=== PATIENT | female | born 1995 | race African-American/Black ===

== ENCOUNTER 2016-12-27 13:20 | Emergency (ER) | payer SELFPAY ==
[~2016-12-27] VITALS: Ht 157.5 cm; Wt 54.4 kg
[2016-12-27 13:25] VITALS: BP 124/72
--- NOTE | 2016-12-27 14:43 | PHYS DOC ---
Past Medical History Past Medical History: STD Additional Past Medical Histor: chlamydia Past Surgical History: No Surgical History Alcohol Use: None Drug Use: None Adult General Chief Complaint Chief Complaint: VAGINAL PROBLEM HPI HPI Patient is a 21 year old female presents to emergency department stating that she's been having some vaginal discharge with burning. She states that she is 13 weeks and had seen her tele marketing executive who had her try Monistat over-the- counter. She states she tried to 3 day regimen with no relief. Patient states she still having some burning and itching in the vaginal area. She states the discharge is more of the Monistat type of secretions. She denies any abdominal pain or discomfort. She is 1 para 0 AB 0 Review of Systems Review of Systems Constitutional: Denies fever or chills [] Eyes: Denies change in visual acuity, redness, or eye pain [] HENT: Denies nasal congestion or sore throat [] Respiratory: Denies cough or shortness of breath [] Cardiovascular: No additional information not addressed in HPI [] GI: Denies abdominal pain, nausea, vomiting, bloody stools or diarrhea [] : Denies dysuria or hematuria [] Musculoskeletal: Denies back pain or joint pain [] Integument: Denies rash or skin lesions. Complaint of irritation and discomfort in the vaginal area. Neurologic: Denies headache, focal weakness or sensory changes [] Endocrine: Denies polyuria or polydipsia [] Allergies Allergies Allergies Coded Allergies Type Severity Reaction Last Updated Verified No Known Drug Allergies 02/22/15 No Physical Exam Physical Exam Constitutional: Well developed, well nourished, no acute distress, non-toxic appearance. [] HENT: Normocephalic, atraumatic, bilateral external ears normal, oropharynx moist, no oral exudates, nose normal. [] Eyes: PERRLA, EOMI, conjunctiva normal, no discharge. [] Neck: Normal range of motion, no tenderness, supple, no stridor. [] Cardiovascular:Heart rate regular rhythm, no murmur [] Lungs & Thorax: Bilateral breath sounds clear to auscultation [] Skin: Warm, dry, no erythema, no rash. [] Back: No tenderness Extremities: No tenderness, no cyanosis, no clubbing, ROM intact, no edema. [] Neurologic: Alert and oriented X 3, normal motor function, normal sensory function, no focal deficits noted. [] Psychologic: Affect normal, judgement normal, mood normal. [] Speculum exam with patient noted to be red around the perineal area, she did have some yellow discharge noted in the vaginal vault. Manual exam no adnexal tenderness no CMT noted. Current Patient Data Lab Values Laboratory Tests Test 12/27/16 15:08 Urine Collection Type Unknown Urine Color Yellow Urine Clarity Cloudy Urine pH 6.5 Urine Specific [place] 1.025 Urine Protein Negative mg/dL (NEG-TRACE) Urine Glucose (UA) Negative mg/dL (NEG) Urine Ketones (Stick) Negative mg/dL (NEG) Urine Blood Small (NEG) Urine Nitrite Negative (NEG) Urine Bilirubin Negative (NEG) Urine Urobilinogen Dipstick 1.0 mg/dL (0.2 mg/dL) Urine Leukocyte Esterase Large (NEG) Urine RBC 1-2 /HPF (0-2) Urine WBC >40 /HPF (0-4) Urine Squamous Epithelial Cells Mod /LPF Urine Bacteria Few /HPF (0-FEW) Urine Mucus Mod /LPF Urine Yeast Present /HPF Microbiology 12/27/16 Wet Prep - Final, Complete EKG EKG [] Radiology/Procedures Radiology/Procedures [] Course & Med Decision Making Course & Med Decision Making Pertinent Labs and Imaging studies reviewed. (See chart for details) Patients urine is positive for UTI. Patient is positive for yeast. Patient will be placed on macrobid with clotrimiazole. Patient will be encouraged to drink plenty of fluids such as water and cranberry juice. Avoid cranberry juice cocktail, carbonated beverages, citrus fruits, caffeine and alcohol as these are considered irritants to the bladder. Patient was provided with signs and symptoms to return to the emergency department. Patient agrees with discharge instructions, treatment regimen and followup recommendations. [] Dragon Disclaimer Dragon Disclaimer This electronic medical record was generated, in whole or in part, using a voice recognition dictation system. Departure Departure Impression: Primary Impression: UTI (urinary tract infection) Additional Impression: Yeast vaginitis Disposition: HOME, SELF-CARE Condition: STABLE Referrals: NO PCP (PCP) Patient Instructions: Candidal Vulvovaginitis, [id number], Urinary Tract Infection, [id number] Additional Instructions: Activity as tolerated Medication as prescribed Drink plenty of fluids such as water and cranberry juice Avoid cranberry juice cocktail, carbonated beverages, citrus fruits, caffeine and alcohol. Followup with [facility] for further evaluation Return to emergency department for signs and symptoms that become worse. Scripts Clotrimazole ([id number]) 45 Gm Cream.appl 45 GM VG HS for 7 Days, #7 EACH Prov: ADRI BECKER APRN 12/27/16 Nitrofurantoin Monohyd/M-Cryst (MACROBID 100 MG CAPSULE) 100 Mg Capsule 1 CAP PO BID, #14 CAP Prov: ADRI BECKER APRN 12/27/16 Problem Qualifiers ADRI BECKER APRN Dec 27, 2016 14:42
[2016-12-27 15:22] LABS: BILIRUBIN,URINE NEGATIVE (NEG); GLUCOSE,URINE NEGATIVE (NEG); NITRITE,URINE NEGATIVE (NEG); PH,URINE 6.5; PROTEIN,URINE NEGATIVE (NEG-TRACE)
[2016-12-27 15:28] LABS: BACTERIA,URINE FEW /HPF (0-FEW); SQUAMOUS EPITHELIAL CELL,UR MOD /LPF; WBC,URINE >40 /HPF (0-4); YEAST,URINE PRESENT /HPF
[2016-12-27] MEDS ORDERED: NITR100C62 PO (15:39)
[2016-12-27] MEDS ORDERED: CLOT45CR9 VG (15:39)
== END 2016-12-27 15:45 | disposition home or self-care (01) ==
LOC: ER 13:20
DX: O23.41 Unspecified infection of urinary tract in pregnancy, first trimester (principal); O98.811 Other maternal infectious and parasitic diseases complicating pregnancy, first trimester; B37.3 Candidiasis of vulva and vagina; Z3A.13 13 weeks gestation of pregnancy
CPT/HCPCS: 81001; 87086; 87491; 87591; 99284; Q0111

== ENCOUNTER 2018-03-10 09:47 | Emergency (ER) | payer SELFPAY ==
[~2018-03-10] VITALS: Ht 160 cm; Wt 76.7 kg
[~2018-03-10 09:47] MED LIST: CLOT45CR9 VG; NITR100C62 PO
[2018-03-10 09:49] VITALS: BP 139/85
[2018-03-10 10:14] LABS: BILIRUBIN,URINE NEGATIVE (NEG); CLARITY,URINE CLEAR; COLOR,URINE YELLOW; NITRITE,URINE NEGATIVE (NEG); PROTEIN,URINE NEGATIVE (NEG-TRACE); UROBILINOGEN,URINE 0.2 mg/dL (0.2 mg/dL)
[2018-03-10 10:38] LABS: BACTERIA,URINE FEW /HPF (0-FEW)
--- NOTE | 2018-03-10 11:40 | PHYS DOC ---
Past Medical History Past Medical History: No Pertinent History Additional Past Medical Histor: chlamydia Past Surgical History: No Surgical History Alcohol Use: None Drug Use: None Adult General Chief Complaint Chief Complaint: VAGINAL BLEEDING HPI HPI Patient is a 22 year old female who presents with vaginal bleeding and discharge. Patient states she had some intermittent vaginal bleeding over the last 3 weeks which was not normal. She is uncertain when her last menstrual period was because of the irregularity of her bleeding. The patient is not on control. She was last sexually active 2 weeks ago. She also describes some abnormal vaginal discharge over the same time. She has not had a fever or chills. No pelvic pain or cramps. No nausea or vomiting. No heavy bleeding. Review of Systems Review of Systems Constitutional: Denies fever or chills Eyes: Denies change in visual acuity HENT: Denies nasal congestion Respiratory: Denies cough or shortness of breath Cardiovascular: No additional information GI: Denies abdominal pain, nausea : Denies dysuria or hematuria Musculoskeletal: Denies back pain Integument: Denies rash or skin lesions Neurologic: Denies headache Endocrine: Denies polyuria All other systems were reviewed and found to be within normal limits, except as documented in this note. Current Medications Current Medications Current Medications Medications (Trade) Dose Ordered Sig/Bjorn Start Time Stop Time Status Last Admin Dose Admin Azithromycin (Zithromax) 500 mg 1X ONCE 03/10/18 11:45 03/10/18 11:46 Ceftriaxone Sodium (Rocephin Im) 250 mg 1X ONCE 03/10/18 11:45 03/10/18 11:46 Allergies Allergies Allergies Coded Allergies Type Severity Reaction Last Updated Verified No Known Drug Allergies 02/22/15 No Physical Exam Physical Exam Constitutional: Well developed, well nourished, no acute distress, non-toxic appearance. HENT: Normocephalic, atraumatic, bilateral external ears normal, oropharynx moist Neck: Normal range of motion Cardiovascular:Heart rate regular rhythm, no murmur Lungs & Thorax: Bilateral breath sounds clear to auscultation Abdomen: Bowel sounds normal, soft, no tenderness Skin: Warm, dry, no erythema, no rash. Back: No tenderness, no CVA tenderness. Neurologic: Alert and oriented X 3 Psychologic: Affect normal Pelvic: Normal female external genitalia. Vaginal mucosa is moist and noninflamed. The cervical os is visualized to be closed with some discharge present from the os and some blood streaking. There was a very scant amount of blood in the vault as well but no active or heavy bleeding. There is no cervical motion tenderness. There is no adnexal tenderness or masses. Current Patient Data Vital Signs Vital Signs Date Time Temp Pulse Resp B/P (MAP) Pulse Ox O2 Delivery O2 Flow Rate FiO2 03/10/18 09:49 98.2 87 18 139/85 (103) 99 Room Air 98.2 Lab Values Laboratory Tests Test 03/10/18 10:00 03/10/18 10:06 Urine Collection Type Unknown Urine Color Yellow Urine Clarity Clear Urine pH 6.0 Urine Specific [place] 1.020 Urine Protein Negative mg/dL (NEG-TRACE) Urine Glucose (UA) Negative mg/dL (NEG) Urine Ketones (Stick) Negative mg/dL (NEG) Urine Blood Large (NEG) Urine Nitrite Negative (NEG) Urine Bilirubin Negative (NEG) Urine Urobilinogen Dipstick 0.2 mg/dL (0.2 mg/dL) Urine Leukocyte Esterase Small (NEG) Urine RBC 6-10 /HPF (0-2) Urine WBC 5-10 /HPF (0-4) Urine Bacteria Few /HPF (0-FEW) POC Urine HCG, Qualitative Hcg negative (Negative) Microbiology 03/10/18 Wet Prep - Final, Complete EKG EKG [] Radiology/Procedures Radiology/Procedures [] Course & Med Decision Making Course & Med Decision Making Pertinent Labs and Imaging studies reviewed. (See chart for details) Patient is seen in the ER for abnormal vaginal bleeding or discharge. Her pelvic exam is documented above. The exam was accompanied by a female registered nurse. Gonorrhea and chlamydia swabs were collected and sent to lab. There is no pelvic pain so no ultrasound was completed today. The patient is very stable in her vital signs and physical exam. I offer the patient empiric treatment for STI as opposed to awaiting results. The patient did opt for being treated today. She was given 1 g of azithromycin and 250 mg of Rocephin. Sexual precautions were discussed. Patient is discharged to home. She will return to the ER for any new or worsening symptoms. Dragon Disclaimer Dragon Disclaimer This electronic medical record was generated, in whole or in part, using a voice recognition dictation system. Departure Departure Referrals: NO PCP (PCP) BRITNI BARNES DO Mar 10, 2018 11:40
[2018-03-10] MEDS ORDERED: AZITHROMYCIN 250 MG TABLET. PO ONE (11:45)
[2018-03-10] MEDS ORDERED: cefTRIAXone IM 250 MG VIAL IM ONE (11:45)
[2018-03-11 15:31] LABS: GC PROBE Negative (Negative)
== END 2018-03-10 12:06 | disposition home or self-care (01) ==
LOC: ER 09:47
DX: N93.9 Abnormal uterine and vaginal bleeding, unspecified (principal)
CPT/HCPCS: 81001; 81025; 87491; 87591; 96372; 99284; J0696; Q0111; Q0144; 36415

== ENCOUNTER 2018-09-12 12:01 | Emergency (ER) | payer OTHER ==
[~2018-09-12] VITALS: Ht 157.5 cm; Wt 65.8 kg
--- NOTE | 2018-09-12 12:40 | PHYS DOC ---
Past Medical History Past Medical History: No Pertinent History Additional Past Medical Histor: chlamydia Past Surgical History: No Surgical History Alcohol Use: None Drug Use: Marijuana Social History Narrative: quit smoking marijauna 1 week ago Adult General Chief Complaint Chief Complaint: ABDOMINAL PAIN [facility] Patient is a 23 year old female presenting today requesting test confirmation. Patient states yesterday she did a home test which was faintly positive. She states her last menstrual cycle was 2 months ago though her cycles are irregular. She states she has slight cramping. Denies any vaginal bleeding. Denies any concerns for STDs. She is a 1 para 1 without counting these considering we have no confirmation. Review of Systems Review of Systems Constitutional: Denies fever or chills [] Eyes: Denies change in visual acuity, redness, or eye pain [] HENT: Denies nasal congestion or sore throat [] Respiratory: Denies cough or shortness of breath [] Cardiovascular: No additional information not addressed in HPI [] GI: Request for test, abdominal cramping, denies nausea, vomiting, bloody stools or diarrhea [] : Denies dysuria or hematuria [] Musculoskeletal: Denies back pain or joint pain [] Integument: Denies rash or skin lesions [] Neurologic: Denies headache, focal weakness or sensory changes [] All other systems were reviewed and found to be within normal limits, except as documented in this note. Allergies Allergies Allergies Coded Allergies Type Severity Reaction Last Updated Verified No Known Drug Allergies 02/22/15 No Physical Exam Physical Exam Constitutional: Well developed, well nourished, no acute distress, non-toxic appearance. [] HENT: Normocephalic, atraumatic, bilateral external ears normal, oropharynx moist, no oral exudates, nose normal. [] Eyes: PERRLA, EOMI, conjunctiva normal, no discharge. [] Neck: Normal range of motion, no tenderness, supple, no stridor. [] Cardiovascular:Heart rate regular rhythm, no murmur [] Lungs & Thorax: Bilateral breath sounds clear to auscultation [] Abdomen: Rounded abdomen. Bowel sounds normal, soft, no tenderness, no masses, no pulsatile masses. [] Skin: Warm, dry, no erythema, no rash. [] Back: No tenderness, no CVA tenderness. [] Extremities: No tenderness, no cyanosis, no clubbing, ROM intact, no edema. [] Neurologic: Alert and oriented X 3, normal motor function, normal sensory function, no focal deficits noted. [] Psychologic: Affect normal, judgement normal, mood normal. [] Current Patient Data Vital Signs Vital Signs Date Time Temp Pulse Resp B/P (MAP) Pulse Ox O2 Delivery O2 Flow Rate FiO2 09/12/18 13:53 82 16 118/58 (78) 99 Room Air 09/12/18 12:18 98.5 98.5 Lab Values Laboratory Tests Test 09/12/18 12:30 09/12/18 12:36 Urine Collection Type Void Urine Color Yellow Urine Clarity Clear Urine pH 6.0 Urine Specific [place] 1.025 Urine Protein Negative mg/dL (NEG-TRACE) Urine Glucose (UA) Negative mg/dL (NEG) Urine Ketones (Stick) Trace mg/dL (NEG) Urine Blood Negative (NEG) Urine Nitrite Negative (NEG) Urine Bilirubin Negative (NEG) Urine Urobilinogen Dipstick 0.2 mg/dL (0.2 mg/dL) Urine Leukocyte Esterase Moderate (NEG) Urine RBC 0 /HPF (0-2) Urine WBC 11-20 /HPF (0-4) Urine Squamous Epithelial Cells Mod /LPF Urine Bacteria Few /HPF (0-FEW) Urine Mucus Mod /LPF POC Urine HCG, Qualitative Hcg positive (Negative) EKG EKG [] Radiology/Procedures Radiology/Procedures [] Course & Med Decision Making Course & Med Decision Making Pertinent Labs and Imaging studies reviewed. (See chart for details) This is a 23-year-old female patient presenting to the ED today requesting a test confirmation. Her last period was 2 months ago. Positive urine hCG. As soon as she had the ultrasound done she eloped from the Ed. Dragon Disclaimer Dragon Disclaimer This electronic medical record was generated, in whole or in part, using a voice recognition dictation system. Departure Departure Impression: Primary Impression: UTI (urinary tract infection) Additional Impression: Disposition: 07 AGAINST MEDICAL ADVICE Condition: STABLE Referrals: NO PCP (PCP) Problem Qualifiers Primary Impression: UTI (urinary tract infection) Urinary tract infection type: site unspecified Hematuria presence: without hematuria Qualified Codes: N39.0 - Urinary tract infection, site not specified Additional Impression: Weeks of gestation: less than 8 weeks Qualified Codes: Z3A.01 - Less than 8 weeks gestation of TEXKRYSTAL Mccoy BREANNA Sep 12, 2018 12:40
[2018-09-12 12:45] LABS: BILIRUBIN,URINE NEGATIVE (NEG); CLARITY,URINE CLEAR; COLOR,URINE YELLOW; NITRITE,URINE NEGATIVE (NEG); PROTEIN,URINE NEGATIVE (NEG-TRACE); UROBILINOGEN,URINE 0.2 mg/dL (0.2 mg/dL)
[2018-09-12 12:54] LABS: BACTERIA,URINE FEW /HPF (0-FEW); SQUAMOUS EPITHELIAL CELL,UR MOD /LPF
[2018-09-12 12:55] LABS: RBC,URINE 0 /HPF (0-2)
[2018-09-12 13:53] VITALS: BP 118/58
--- NOTE | 2018-09-12 14:32 | RAD ---
OB <14 WKS W/TV Clinical Indication: CRAMPING Comparison: None. TECHNIQUE: Real-time ultrasound imaging of the pelvis using transabdominal and transvaginal window is performed. Findings: Uterus measures 9 x 7 x 6 cm. Tiny nabothian cysts. Anteverted uterus. There is a tiny intrauterine cyst along the endometrial stripe near the fundus. Finding may be a gestational sac. If so it measures 0.6 cm, 5 weeks and 2 days. EDC ultrasound is 05/13/2019. A yolk sac and pole are not identified. There is moderate cul-de-sac free fluid. No evidence of adnexal mass. There is normal blood flow in the right ovary. In the right ovary there is a 2 cm possible cyst with internal echoes which may be a hemorrhagic cyst. Right ovary measures 3.5 x 2.4 x 2.4 cm. The left ovary measures 2.4 x 1.9 x 2.3 cm. There is normal blood flow. IMPRESSION: 1. Possible 0.6 cm intrauterine gestational sac, estimated sonographic gestational age 5 weeks and 2 days. No internal contents are seen. Early normal intrauterine gestation, failed first trimester , and ectopic are considerations. Recommend serial quantitative beta hCG. Consider short-term follow-up ultrasound. 2. Moderate cul-de-sac free fluid. 3. Small right ovary hemorrhagic cyst. Electronically signed by: Yahir Peraza MD (09/12/2018 2:29 PM) [id number]
== END 2018-09-12 14:40 | disposition left against medical advice (07) ==
LOC: ER 12:01
DX: O23.41 Unspecified infection of urinary tract in pregnancy, first trimester (principal); Z3A.01 Less than 8 weeks gestation of pregnancy
CPT/HCPCS: 76801; 76817; 81001; 81025; 87086; 99284-25

== ENCOUNTER 2018-10-10 08:35 | Emergency (ER) | payer OTHER ==
[~2018-10-10] VITALS: Ht 162.6 cm; Wt 66.7 kg
[2018-10-10 09:07] VITALS: BP 137/78
--- NOTE | 2018-10-10 09:36 | PHYS DOC ---
Past Medical History Past Medical History: No Pertinent History Additional Past Medical Histor: chlamydia Past Surgical History: No Surgical History Alcohol Use: None Drug Use: Marijuana Adult General Chief Complaint Chief Complaint: COUGH HPI HPI Patient is a 23 year old female presents to the ED complaining of cough x 3 days. Patient is 9 weeks . States her cough is dry. Associated symptoms consist of congestion. States she has not taken any at home or otc medications. Sick contacts with similar symptoms. Denies related symptoms, fever, nausea/vomiting, headache, sore throat, chest pain, shortness or breath, diarrhea or rash. Review of Systems Review of Systems Constitutional: Denies fever or chills [] Eyes: Denies change in visual acuity, redness, or eye pain [] HENT: Complains of congestion. Denies sore throat [] Respiratory: Complains of cough. Denies shortness of breath [] Cardiovascular: No additional information not addressed in HPI [] GI: Denies abdominal pain, nausea, vomiting, bloody stools or diarrhea [] : Denies dysuria or hematuria [] Musculoskeletal: Denies back pain or joint pain [] Integument: Denies rash or skin lesions [] Neurologic: Denies headache, focal weakness or sensory changes [] All other systems were reviewed and found to be within normal limits, except as documented in this note. Allergies Allergies Allergies Coded Allergies Type Severity Reaction Last Updated Verified No Known Drug Allergies 02/22/15 No Physical Exam Physical Exam Constitutional: Well developed, well nourished, no acute distress, non-toxic appearance. [] HENT: Normocephalic, atraumatic, bilateral external ears normal, oropharynx moist, no oral exudates, nose normal. [] Eyes: PERRLA, EOMI, conjunctiva normal, no discharge. [] Neck: Normal range of motion, no tenderness, supple, no stridor. Dry cough. [] Cardiovascular:Heart rate regular rhythm, no murmur [] Lungs & Thorax: Bilateral breath sounds clear to auscultation [] Abdomen: Bowel sounds normal, soft, no tenderness, no masses, no pulsatile masses. [] Skin: Warm, dry, no erythema, no rash. [] Back: No tenderness, no CVA tenderness. [] Extremities: No tenderness, no cyanosis, no clubbing, ROM intact, no edema. [] Neurologic: Alert and oriented X 3, normal motor function, normal sensory function, no focal deficits noted. [] Psychologic: Affect normal, judgement normal, mood normal. [] Current Patient Data Vital Signs Vital Signs Date Time Temp Pulse Resp B/P (MAP) Pulse Ox O2 Delivery O2 Flow Rate FiO2 10/10/18 09:07 98.3 81 16 137/78 (97) 99 Room Air 98.3 EKG EKG [] Radiology/Procedures Radiology/Procedures [] Course & Med Decision Making Course & Med Decision Making Pertinent Labs and Imaging studies reviewed. (See chart for details) []Patient well appearing. Dry cough and congestion. Discussed symptomatic treatment outpatient, hydration and safe medications. Discussed follow-up this week and reasons to return to the ED. Patient understands and agrees with plan. Dragon Disclaimer Dragon Disclaimer This electronic medical record was generated, in whole or in part, using a voice recognition dictation system. Departure Departure Impression: Primary Impression: Viral URI with cough Disposition: HOME, SELF-CARE Condition: STABLE Referrals: AMNA VERA MD (PCP) Patient Instructions: Cough, Adult, Upper Respiratory Infection, Adult ELLY HOOPER Oct 10, 2018 09:36
== END 2018-10-10 09:46 | disposition home or self-care (01) ==
LOC: ER 08:35
DX: O99.511 Diseases of the respiratory system complicating pregnancy, first trimester (principal); J06.9 Acute upper respiratory infection, unspecified; B97.89 Other viral agents as the cause of diseases classified elsewhere; Z3A.09 9 weeks gestation of pregnancy
CPT/HCPCS: 99281

== ENCOUNTER 2019-03-08 13:40 | Observation (INO) | payer OTHER ==
[2019-03-08 14:26] LABS: BILIRUBIN,URINE NEGATIVE (NEG); CLARITY,URINE CLEAR; COLOR,URINE YELLOW; NITRITE,URINE NEGATIVE (NEG); PROTEIN,URINE NEGATIVE (NEG-TRACE)
[2019-03-08 14:31] LABS: SQUAMOUS EPITHELIAL CELL,UR MANY /LPF
[2019-03-08 14:32] LABS: BACTERIA,URINE MODERATE /HPF (0-FEW)
[2019-03-08 14:33] LABS: RBC,URINE 0 /HPF (0-2)
[2019-03-08] MEDS: BETAMET ACET&NA PHOS 30 MG/5 ML VIAL. IM SCH (15:00)
[2019-03-08] MEDS ORDERED: NIFEdipine 10 MG CAPSULE PO SCH (15:00)
[2019-03-08] MEDS: NIFEdipine 10 MG CAPSULE PO SCH (15:15)
[2019-03-08] MEDS: IV RINGERS,LACTATED 1000ML 1,000 ML IV SCH (15:16)
[2019-03-09] MEDS: IV RINGERS,LACTATED 1000ML 1,000 ML IV SCH (01:02)
[2019-03-09] MEDS: NIFEdipine 10 MG CAPSULE PO SCH ×2 (09:40→14:01)
[2019-03-09 14:01] VITALS: BP 135/73
[2019-03-09] MEDS: BETAMET ACET&NA PHOS 30 MG/5 ML VIAL. IM SCH (14:02)
== END 2019-03-09 14:35 | disposition home or self-care (01) ==
LOC: 3 SO LND 13:40
PROVIDERS: ADMIT Specialist; ATTEND Specialist
DX: O62.9 Abnormality of forces of labor, unspecified (principal); Z3A.30 30 weeks gestation of pregnancy
CPT/HCPCS: 36415; 81001; 87086; 87653; 96372; G0378; G0379; J0702; J7120; 87070